=== PATIENT | male | born 1960 | race Caucasian/White ===

== ENCOUNTER 2022-03-10 13:32 | Emergency (ER) | payer MEDICARE, MEDICAID ==
[~2022-03-10] VITALS: Ht 170.2 cm; Wt 90.7 kg
--- NOTE | 2022-03-10 13:39 | ED General ---
General Stated Complaint: CHEST PAIN History of Present Illness Date Seen by Provider: Mar 10, 2022 Time Seen by Provider: 13:38 Initial Comments 62-year-old male presents with chest pain/epigastric pain or discomfort. Patient reports that he had earlier today but is basically gone. Patient reports that he felt like his heart was just beating really fast. He presents because he just wants to be checked out. Patient presents intoxicated. He had been sober for 4-1/2 years. Over the weekend he thought he was "cured" that he started drinking again a couple weeks ago and has just been drinking heavily ever since. Patient denies any shortness of breath, nausea, vomiting or other systemic complaints at this time. Allergies and Home Medications Allergies Coded Allergies: Penicillins (Verified Allergy, Unknown, 03/10/22) Patient Home Medication List Home Medication List Reviewed: Yes Review of Systems Review of Systems Constitutional: No chills, No fever Respiratory: No cough, No short of breath Cardiovascular: see HPI, chest pain; No palpitations, No syncope Genitourinary: no symptoms reported Musculoskeletal: no symptoms reported Skin: no symptoms reported Psychiatric/Neurological: No Symptoms Reported Hematologic/Lymphatic: No Symptoms Reported Physical Exam Vital Signs Vital Signs - First Documented 03/10/22 13:35 Temp 36.5 Pulse 89 Resp 20 B/P (MAP) 131/91 (104) Pulse Ox 94 O2 Delivery Room Air Capillary Refill : Height, Weight, BMI Height: '" Weight: lbs. oz. kg; BMI Method: General Appearance: No Apparent Distress, Other (Obviously intoxicated) HEENT: TMs Normal, Normal ENT Inspection Neck: Non Tender, Supple Respiratory: Lungs Clear, Normal Breath Sounds Cardiovascular: Regular Rate, Rhythm, No Edema Gastrointestinal: Non Tender, Soft Extremity: Normal Capillary Refill, Normal Inspection, Normal Range of Motion Neurologic/Psychiatric: Alert, Oriented x3, No Motor/Sensory Deficits, Normal Mood/Affect, oyster floater II-XII Norm as Tested Skin: Normal Color, Warm/Dry Progress/Results/Core Measures Suspected Sepsis SIRS Temperature: Pulse: Respiratory Rate: Laboratory Tests 03/10/22 13:42: White Blood Count 6.8 Blood Pressure / Mean: Laboratory Tests 03/10/22 13:42: Creatinine 0.78, Platelet Count 118L, Total Bilirubin 0.5 Results/Orders Lab Results Laboratory Tests Test 03/10/22 13:42 03/10/22 14:00 Range/Units White Blood Count 6.8 4.3-11.0 10^3/uL Red Blood Count 4.36 4.30-5.52 10^6/uL Hemoglobin 13.1 L 13.3-17.7 g/dL Hematocrit 38 L 40-54 % Mean Corpuscular Volume 88 80-99 fL Mean Corpuscular Hemoglobin 30 25-34 pg Mean Corpuscular Hemoglobin Concent 34 32-36 g/dL Red Cell Distribution Width 13.9 10.0-14.5 % Platelet Count 118 L 130-400 10^3/uL Mean Platelet Volume 9.4 9.0-12.2 fL Immature Granulocyte % (Auto) 0 % Neutrophils (%) (Auto) 50 42-75 % Lymphocytes (%) (Auto) 32 12-44 % Monocytes (%) (Auto) 13 H 0-12 % Eosinophils (%) (Auto) 3 0-10 % Basophils (%) (Auto) 1 0-10 % Neutrophils # (Auto) 3.4 1.8-7.8 X 10^3 Lymphocytes # (Auto) 2.2 1.0-4.0 X 10^3 Monocytes # (Auto) 0.9 0.0-1.0 X 10^3 Eosinophils # (Auto) 0.2 0.0-0.3 10^3/uL Basophils # (Auto) 0.1 0.0-0.1 10^3/uL Immature Granulocyte # (Auto) 0.0 0.0-0.1 10^3/uL Percent Immature Platelet Fraction 4.0 0.0-7.6 % Sodium Level 137 135-145 MMOL/L Potassium Level 4.1 3.6-5.0 MMOL/L Chloride Level 100 98-107 MMOL/L Carbon Dioxide Level 21 21-32 MMOL/L Anion Gap 16 H 5-14 MMOL/L Blood Urea Nitrogen 5 L 7-18 MG/DL Creatinine 0.78 0.60-1.30 MG/DL Estimat Glomerular Filtration Rate 101 BUN/Creatinine Ratio 6 Glucose Level 115 H 70-105 MG/DL Calcium Level 8.3 L 8.5-10.1 MG/DL Corrected Calcium 8.5-10.1 MG/DL Magnesium Level 1.7 1.6-2.4 MG/DL Total Bilirubin 0.5 0.1-1.0 MG/DL Aspartate Amino Transf (AST/SGOT) 159 H 5-34 U/L Alanine Aminotransferase (ALT/SGPT) 144 H 0-55 U/L Alkaline Phosphatase 69 40-136 U/L Troponin I < 0.30 <0.30 NG/ML Total Protein 7.0 6.4-8.2 GM/DL Albumin 4.6 H 3.2-4.5 GM/DL Serum Alcohol 338 *H <10 MG/DL Urine Color YELLOW Urine Clarity CLEAR Urine pH 6.0 5-9 Urine Specific [place] <=1.005 1.016-1.022 Urine Protein NEGATIVE NEGATIVE Urine Glucose (UA) NEGATIVE NEGATIVE Urine Ketones NEGATIVE NEGATIVE Urine Nitrite NEGATIVE NEGATIVE Urine Bilirubin NEGATIVE NEGATIVE Urine Urobilinogen 0.2 < = 1.0 MG/DL Urine Leukocyte Esterase NEGATIVE NEGATIVE Urine RBC (Auto) NEGATIVE NEGATIVE Urine RBC NONE /HPF Urine WBC RARE /HPF Urine Squamous Epithelial Cells RARE /HPF Urine Crystals NONE /LPF Urine Bacteria NEGATIVE /HPF Urine Casts NONE /LPF Urine Mucus NEGATIVE /LPF Urine Culture Indicated NO My Orders Orders - WILSON,MONROE L DO Alcohol (03/10/22 13:43) Cbc With Automated Diff (03/10/22 13:43) Comprehensive Metabolic Panel (03/10/22 13:43) Magnesium (03/10/22 13:43) Ua Culture If Indicated (03/10/22 13:43) Troponin I Fs (03/10/22 13:43) Ekg Tracing (03/10/22 13:43) Monitor-Rhythm Ecg Trace Only (03/10/22 13:43) Chest Pa/Lat (2 View) (03/10/22 13:43) Vital Signs/I&O 03/10/22 13:35 Temp 36.5 Pulse 89 Resp 20 B/P (MAP) 131/91 (104) Pulse Ox 94 O2 Delivery Room Air Capillary Refill : ECG Initial ECG Impression Date: Mar 10, 2022 Initial ECG Impression Time: 13:37 Initial ECG Rate: 89 Initial ECG Rhythm: Normal Sinus Initial ECG Intervals: Normal Initial ECG Impression: Nonspecific Changes Comment No acute ST elevation or changes, Diagnostic Imaging Diagonstic Imaging: Xray Plain Films/CT/US/NM/MRI: chest Comments Date of Exam:03/10/22 CHEST PA/LAT (2 VIEW) INDICATION: Chest pain. TIME OF EXAM: 2:00 PM. COMPARISON: No prior studies are available for comparison. FINDINGS: The heart size is normal. There are numerous rib deformities on the right side, age indeterminate. The lungs are clear. There is no effusion or pneumothorax. IMPRESSION: There are numerous rib fracture deformities on the right side which may be chronic. Clinical correlation is recommended. No acute infiltrates are detected. Departure Impression Primary Impression: Alcohol abuse with intoxication, uncomplicated Disposition: 01 HOME, SELF-CARE Condition: Stable Departure-Patient Inst. Patient Instructions: Alcohol Use Disorder ED, Alcohol Use - When Is Drinking a Problem? Add. Discharge Instructions: Please consider following up with your primary care provider to get help finding resources to help with your alcohol abuse Please consider a alcohol Anonymous for support MONROE WILSON DO Mar 10, 2022 13:39
[2022-03-10 14:05] LABS: HEMATOCRIT 38 % (40-54); HEMOGLOBIN 13.1 g/dL (13.3-17.7); MEAN CORPUSCULAR HEMOGLOBIN 30 pg (25-34); MEAN CORPUSCULAR HGB CONC 34 g/dL (32-36); MEAN CORPUSCULAR VOLUME 88 fL (80-99); MEAN PLATELET VOLUME 9.4 fL (9.0-12.2); PLATELET COUNT 118 10^3/uL (130-400); WHITE BLOOD COUNT 6.8 10^3/uL (4.3-11.0)
[2022-03-10 14:06] LABS: BASOPHILS # (AUTO) 0.1 10^3/uL (0.0-0.1); BASOPHILS % (AUTO) 1 % (0-10); EOSINOPHILS # (AUTO) 0.2 10^3/uL (0.0-0.3); EOSINOPHILS % (AUTO) 3 % (0-10); LYMPHOCYTES # (AUTO) 2.2 X 10^3 (1.0-4.0); LYMPHOCYTES % (AUTO) 32 % (12-44); MONOCYTES # (AUTO) 0.9 X 10^3 (0.0-1.0); MONOCYTES % (AUTO) 13 % (0-12); NEUTROPHILS # (AUTO) 3.4 X 10^3 (1.8-7.8); NEUTROPHILS % (AUTO) 50 % (42-75)
--- NOTE | 2022-03-10 14:08 | Diagnostic Imaging Report ---
INDICATION: Chest pain. TIME OF EXAM: 2:00 PM. COMPARISON: No prior studies are available for comparison. FINDINGS: The heart size is normal. There are numerous rib deformities on the right side, age indeterminate. The lungs are clear. There is no effusion or pneumothorax. IMPRESSION: There are numerous rib fracture deformities on the right side which may be chronic. Clinical correlation is recommended. No acute infiltrates are detected. Dictated by: Dictated on workstation # [id number]
[2022-03-10 14:14] LABS: CHLORIDE 100 MMOL/L (98-107); POTASSIUM 4.1 MMOL/L (3.6-5.0); SODIUM 137 MMOL/L (135-145)
[2022-03-10 14:15] LABS: ALANINE AMINOTRANSFERASE 144 U/L (0-55); ALBUMIN 4.6 GM/DL (3.2-4.5); ALKALINE PHOSPHATASE 69 U/L (40-136); BILIRUBIN,TOTAL 0.5 MG/DL (0.1-1.0); BUN/CREATININE RATIO 6; CALCIUM 8.3 MG/DL (8.5-10.1); CARBON DIOXIDE 21 MMOL/L (21-32); CREATININE SERUM 0.78 MG/DL (0.60-1.30); GFR ESTIMATED 101; GLUCOSE 115 MG/DL (70-105); MAGNESIUM 1.7 MG/DL (1.6-2.4)
[2022-03-10 14:40] LABS: BILIRUBIN,URINE NEGATIVE (NEGATIVE); CLARITY,URINE CLEAR; COLOR,URINE YELLOW; GLUCOSE, URINE (UA) NEGATIVE (NEGATIVE); KETONES,URINE NEGATIVE (NEGATIVE); LEUKOCYTE ESTERASE ,URINE NEGATIVE (NEGATIVE); NITRITE,URINE NEGATIVE (NEGATIVE); PROTEIN,URINE NEGATIVE (NEGATIVE)
[2022-03-10 14:47] LABS: BACTERIA,URINE NEGATIVE /HPF; SQUAMOUS EPITHELIAL CELL,UR RARE /HPF; WBC,URINE RARE /HPF
[2022-03-10 15:05] VITALS: BP 138/81
== END 2022-03-10 15:06 | disposition home or self-care (01) ==
LOC: ER FS 13:34
DX: F10.120 Alcohol abuse with intoxication, uncomplicated (principal); Z28.310 Unvaccinated for COVID-19
CPT/HCPCS: 36415; 71046; 80053; 81000; 83735; 84484; 85025; 93005; 93041; 99284; G0480; 80320